=== PATIENT | male | born 1955 | race Native Hawaiian/Other Pacific Islander ===

== ENCOUNTER 2021-09-18 06:50 | Day surgery (SDC) | payer BC ==
[~2021-09-18] VITALS: Ht 172.7 cm; Wt 81.2 kg
[2021-09-18] MEDS ORDERED: SIMETHICONE 40 MG/0.6 ML ML ONE (07:01)
[2021-09-18] MEDS: MIDAZOLAM HCL 5 MG/5 ML VIAL ONE ×4 (08:29→08:39)
[2021-09-18] MEDS: MEPERIDINE 100 MG INJ. 100 MG/ML VIAL ONE ×2 (08:29→08:32)
[2021-09-18 14:37] VITALS: BP_SYST 118
== END 2021-09-18 10:05 | disposition home or self-care (01) ==
LOC: SDS 06:50 → SMU 06:51 → SDS 10:05
PROVIDERS: ATTEND Internal Medicine Gastroenterology
DX: Z12.11 Encounter for screening for malignant neoplasm of colon (principal); D12.5 Benign neoplasm of sigmoid colon; K64.8 Other hemorrhoids; I10 Essential (primary) hypertension; E78.00 Pure hypercholesterolemia, unspecified; Z20.822 Contact with and (suspected) exposure to COVID-19; Z79.899 Other long term (current) drug therapy
CPT/HCPCS: 45385; 87426; 36415; 88305; 99152; 99153; G0378; J2250; J2175; 45384

== ENCOUNTER 2021-11-09 08:15 | Day surgery (SDC) | payer BC ==
[~2021-11-09] VITALS: Ht 172.7 cm; Wt 82.1 kg
[~2021-11-09 08:15] MED LIST: CEFAZOLIN SOD 1 GM/ ISO 50 ML PREMIX IV ONE
[2021-11-09] MEDS ORDERED: LIDOCAINE 1% 10 MG/ML, 20 ML MDV INJ ONE (12:52)
[2021-11-09] MEDS ORDERED: ONDANSETRON HCL 4 MG/2 ML VIAL IVP ONE (12:52)
[2021-11-09] MEDS ORDERED: fentaNYL CITRATE 250 MCG/5 ML AMP IV ONE (12:52)
[2021-11-09] MEDS ORDERED: PROPOFOL 200MG/ 20ML VIAL (DIPRIVAN) IV ONE (12:52)
[2021-11-09] MEDS ORDERED: BUPIVACAINE /PF 0.25% 30 ML VIAL INJ ONE (12:52)
[2021-11-09] MEDS ORDERED: LR 1,000 ML IV.SOLN IV ONE (12:52)
[2021-11-09] MEDS ORDERED: DESFLURANE 15 MIN GAS INH ONE (12:52)
[2021-11-09] MEDS ORDERED: ROCURONIUM BROMIDE 10 MG/ML (ZEMURON) IV ONE (12:52)
[2021-11-09] MEDS ORDERED: NS IRRIG SOLN 1000 ML IR ONE (12:52)
[2021-11-09] MEDS ORDERED: MIDAZOLAM HCL 5 MG/5 ML VIAL IVP ONE (12:52)
[2021-11-09] MEDS ORDERED: KETOROLAC TROMETHAMINE 30 MG VIAL IVP ONE (12:52)
[2021-11-09] MEDS ORDERED: DEXAMETHASONE SOD PHOSPHATE 4 MG/ML VIAL IVP ONE (12:52)
[2021-11-09] MEDS ORDERED: SUGAMMADEX SODIUM 200 MG/2 ML VIAL IV ONE (12:52)
[2021-11-09] MEDS ORDERED: ACETAMINOPHEN I.V. 1000 MG 100 ML IV ONE (13:41)
[2021-11-09] MEDS ORDERED: HYDROmorphone 1 MG/ML INJ. CARTRIDGE IVP PRN ×2 (13:45)
[2021-11-09] MEDS ORDERED: hydrALAZINE HCL 20 MG/ML VIAL IVP PRN (13:45)
[2021-11-09] MEDS ORDERED: MIDAZOLAM HCL 2 MG/2 ML VIAL (VERSED) IVP PRN (13:45)
[2021-11-09] MEDS ORDERED: LABETALOL 100 MG/ 20ML VIAL IVP PRN (13:45)
[2021-11-09] MEDS ORDERED: MEPERIDINE HCL/PF 25 MG/ML DISP.SYRIN IVP PRN (13:45)
[2021-11-09] MEDS ORDERED: LR 1,000 ML IV SCH (13:45)
[2021-11-09] MEDS ORDERED: METOCLOPRAMIDE HCL 10 MG/2 ML VIAL IVP PRN (13:45)
[2021-11-09] MEDS ORDERED: HYDROcodone/ACETAMIN 5-325 MG TAB (NORCO/ VICODIN) PO PRN ×2 (14:15)
[2021-11-09] MEDS ORDERED: D5/0.45 NS 1,000 ML IV SCH (14:15)
[2021-11-09 15:20] VITALS: BP_SYST 154
== END 2021-11-09 16:05 | disposition home or self-care (01) ==
LOC: SDS 08:15 → SMU 08:16 → SDS 16:05
PROVIDERS: ATTEND Colon & Rectal Surgery
DX: K43.0 Incisional hernia with obstruction, without gangrene (principal); Z20.822 Contact with and (suspected) exposure to COVID-19
CPT/HCPCS: 36415 ×2; 71046; 49561; 93005; 88302; 87426; U0003; J3490 ×2; J0690; J1100; J1885; J2001; J2250; J2405; J2704; J3010; J7120; J0131